=== PATIENT | female | born 1990 ===

== ENCOUNTER 2016-06-02 10:51 | Emergency (ER) | payer MEDICAID ==
[2016-06-02 10:56] VITALS: BMI 24.7
[2016-06-02 10:58] VITALS: BP 117/45; PULSE 80; RESP 20; TEMP 98; O2SAT 100
--- NOTE | 2016-06-02 12:07 | ED PDOC ---
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 denies: Decreased Vision Additional Complaint(s): 26yo female presents via self c/o right eye redness, itch and burning, lacrimation, mild lid /conjunctival swelling, states her daughter admitted to peds floor for eye infection now shes starting to exhibit similar symptoms, before daughter is discharged mandate Maryjane be seen for symptoms. Past Medical History Reviewed: Historical Data, Nursing Documentation, Vital Signs Vital Signs: Last Vital Signs Temp 98.0 F 06/02/16 10:58 Pulse 80 06/02/16 10:58 Resp 20 06/02/16 10:58 BP 117/45 L 06/02/16 10:58 Pulse Ox 100 06/02/16 10:58 - Medical History PMH: No Chronic Diseases - Surgical History Surgical History: No Surg Hx - Family History Family History: States: Unknown Family Hx - Living Arrangements Living Arrangements: With Family - Immunization History Hx Tetanus Toxoid Vaccination: No Hx Influenza Vaccination: No Hx Pneumococcal Vaccination: No - Home Medications Home Medications: Ambulatory Orders Medication Instructions Recorded Polymyxin/Trimethoprim Sulfate 3 drop OD Q4 5 Days 06/02/16 [Polytrim Ophth Soln] - Allergies Allergies/Adverse Reactions: Allergies Allergy/AdvReac Type Severity Reaction Status Date / Time No Known Allergies Allergy Verified 06/02/16 11:40 Review of Systems Constitutional: Negative for: Chills, Sweats Eyes: Positive for: Conjunctivae Inflammation, Eyelid Inflammation, Redness. Negative for: Vision Change Cardiovascular: Negative for: Chest Pain, Palpitations Gastrointestinal: Negative for: Nausea, Vomiting Physical Exam - Reviewed Nursing Documentation Reviewed: Yes Vital Signs Reviewed: Yes - Physical Exam Appears: Positive for: Well, Non-toxic Head Exam: Positive for: ATRAUMATIC Skin: Positive for: Normal Color, Warm, Dry Eye Exam: Positive for: Conjunctival injection, Other (injection, lacrimation ( clear), cornea quiet; fluroscein stain no uptake). Negative for: Nystagmus, Periorbital tenderness, Scleral icterus - ECG O2 Sat by Pulse Oximetry: 100 Medical Decision Making Medical Decision Making: Rx polytrim. Explained caution as contagious, followup ophtho. Visual acuity grossly intact in ED> Disposition - Clinical Impression Clinical Impression: Conjunctivitis Counseled Patient/Family Regarding: Studies Performed, Diagnosis, Need For Followup, Rx Given - Disposition Referrals: Marlon Morris MD [Staff Provider] - Disposition: Routine/Home Disposition Time: 11:45 Condition: STABLE Additional Instructions: See eye doctor in 1-2 days for followup, return to ER for any worse or new symptoms. Take medications as directed. Use caution as this condition is contagious- avoid rubbing the other eye, or touching other people. Prescriptions: Polymyxin/Trimethoprim Sulfate [Polytrim Ophth Soln] 3 drop OD Q4 5 Days Instructions: Conjunctivitis (ED) Print Language: WELSH
== END 2016-06-02 12:19 | disposition home or self-care (01) ==
LOC: H.ER 10:51
DX: H10.9 Unspecified conjunctivitis (principal)